=== PATIENT | female | born 1960 | race Two or more races ===

== ENCOUNTER 2017-08-06 06:00 | Day surgery (SDC) | payer OTHER ==
[~2017-08-06 06:00] MED LIST: LOSARTAN POTASS50 MG PO; SYNTHROID50 MCG PO
== END 2017-08-06 12:30 | disposition home or self-care (01) ==
LOC: CIR.AMB 06:00
DX: M75.41 Impingement syndrome of right shoulder (principal); M75.01 Adhesive capsulitis of right shoulder; M75.31 Calcific tendinitis of right shoulder

== ENCOUNTER → 2020-10-10 14:11 | Outpatient (CLI) | payer OTHER | END | disposition home or self-care (01) | LOC: RAD 14:11 | DX: M77.31 Calcaneal spur, right foot (principal); M84.374A Stress fracture, right foot, initial encounter for fracture ==

== ENCOUNTER 2020-11-14 13:55 | Outpatient (CLI) | payer OTHER | END 2020-11-14 14:05 | disposition home or self-care (01) | LOC: RAD 13:55 | DX: M84.374D Stress fracture, right foot, subsequent encounter for fracture with routine healing (principal) ==

== ENCOUNTER 2023-11-16 09:30 | Emergency (ER) | payer OTHER ==
[~2023-11-16] VITALS: Ht 167.6 cm; Wt 56.2 kg
[~2023-11-16 09:30] MED LIST changes: +LIPITOR20 MG PO
[2023-11-16] MEDS ORDERED: DIPHENHYDRAMINE HCL 50 MG/ML VIAL 1ML IV ONE (10:15)
[2023-11-16] MEDS ORDERED: FAMOtidine 10 MG/ML (4ML VIAL) IV ONE (10:15)
[2023-11-16] MEDS ORDERED: 0.9 % SODIUM CHLORIDE 1,000 ML IV ONE (10:15)
[2023-11-16] MEDS ORDERED: KETOROLAC TROMETHAMINE 60 MG VIAL IM ONE ×3 (10:15→10:30)
[2023-11-16] MEDS ORDERED: METHYLPREDNISOLONE SOD SUCC 40 MG VIAL ONE (10:15)
[2023-11-16] MEDS ORDERED: ONDANSETRON HCL 2 MG/ML VIAL IV ONE (10:15)
[2023-11-16] MEDS ORDERED: DIPHENHYDRAMINE HCL 50 MG/ML VIAL 1ML ONE (10:15)
[2023-11-16] MEDS ORDERED: METHYLPREDNISOLONE SOD SUCC 40 MG VIAL IV ONE (10:15)
[2023-11-16] MEDS ORDERED: ONDANSETRON HCL 2 MG/ML VIAL ONE (10:15)
[2023-11-16] MEDS ORDERED: FAMOTIDINE/PF 20 MG/2 ML VIAL ONE (10:16)
[2023-11-16] MEDS ORDERED: MEPERIDINE HCL/PF 50 MG/ML VIAL IV ONE (10:30)
[2023-11-16 10:35] LABS: HEMATOCRIT 39.5 % (36.0-45.00); HEMOGLOBIN 13.8 g/dL (12.0-15.00); MEAN CELL VOLUME 92.2 fL (80.00-100.00); MEAN CORPUSCULAR HEMOGLOBIN 32.3 pg (27.00-32.0); PLATELET COUNT 273 K/uL (150-450); RED BLOOD COUNT 4.28 M/uL (4.00-6.00); RED CELL DISTRIBUTION WIDTH 12.9 % (11.5-14.5)
[2023-11-16 10:40] LABS: PH,URINE 6.5 (5.0-8.0); URINE APPEARANCE Clear; URINE BILIRRUBIN Negative (NEGATIVE); URINE BLOOD Negative; URINE COLOR Yellow; URINE GLUCOSE Negative (NEGATIVE); URINE KETONE Negative (NEGATIVE); URINE LEUKOCYTE Negative; URINE NITRATE Negative; URINE PROTEIN Negative (NEGATIVE); URINE UROBILINOGEN 0.2 E.U./dl
[2023-11-16 10:49] LABS: URINE BACTERIA 0 uL (0.0-1933); URINE EPITHELIAL CELLS 0.6 uL (0.0-38.8); URINE RBC 0.1 uL (0.0-20.8); URINE WBC 0.1 uL (0.0-23.2)
[2023-11-16 11:12] LABS: ALBUMIN 4.1 gm/dL (3.4-5.0); BILIRUBIN TOTAL 0.81 mg/dL (0.3-1.2); CALCIUM 9.4 mg/dL (8.5-10.1); CREATININE SERUM 0.68 mg/dL (0.55-1.02); GFR 87.96; GLOBULINA 3.5 G/DL (2.4-3.5); POTASSIUM 3.55 mEq/L (3.5-5.1); TOTAL PROTEIN 7.6 gm/dL (6.4-8.2)
[2023-11-16] MEDS ORDERED: KETO10TA2 PO (15:01)
== END 2023-11-16 15:28 | disposition home or self-care (01) ==
LOC: ER 09:32
PROVIDERS: General Practice
DX: R10.32 Left lower quadrant pain (principal)

== ENCOUNTER 2023-11-20 13:48 | Outpatient (CLI) | payer OTHER ==
[~2023-11-20 13:48] MED LIST changes: +KETO10TA2 PO
== END 2023-11-20 13:56 | disposition home or self-care (01) ==
LOC: SONOGRAMA 13:48
PROVIDERS: ATTEND Obstetrics & Gynecology
DX: R10.2 Pelvic and perineal pain (principal); R10.10 Upper abdominal pain, unspecified

== ENCOUNTER 2024-09-14 11:25 | Emergency (ER) | payer OTHER ==
[~2024-09-14] VITALS: Ht 167.6 cm; Wt 63.5 kg
[2024-09-14 11:32] VITALS: BP 121/79; O2SAT 100
[2024-09-14] MEDS ORDERED: 0.9 % SODIUM CHLORIDE 1,000 ML IV SCH (12:30)
[2024-09-14 13:38] LABS: BASO % 0.5 % (0.1-1.2); HEMATOCRIT 41.6 % (34.1-44.9); HEMOGLOBIN 14.6 g/dL (11.2-15.7); LYMPH # 1.58 (1.18-3.74); MEAN CORPUSCULAR HEMOGLOBIN 31.3 pg (25.6-32.2); MONO # 0.59 (0.24-0.82); NEUT # 4.38 (1.56-6.13); NEUT % 66.3 % (34.0-71.1); PLATELET COUNT 260 K/uL (163-369); RED BLOOD COUNT 4.66 M/uL (3.93-5.22); RED CELL DISTRIBUTION WIDTH 12.2 % (11.6-14.4)
[2024-09-14 14:51] LABS: COVID-19 AG NEGATIVE (NEGATIVE); INFLUENZA A AG NEGATIVE (NEGATIVE); INFLUENZA B AG NEGATIVE (NEGATIVE)
[2024-09-14 14:54] LABS: ALBUMIN 4.3 gm/dL (3.4-5.0); BILIRUBIN TOTAL 0.5 mg/dL (0.3-1.2); CALCIUM 9.6 mg/dL (8.5-10.1); CREATININE SERUM 0.76 mg/dL (0.55-1.02); GFR 77.11; GLOBULINA 3.1 G/DL (2.4-3.5); POTASSIUM 4.51 mEq/L (3.5-5.1); TOTAL PROTEIN 7.4 gm/dL (6.4-8.2)
== END 2024-09-14 17:09 | disposition home or self-care (01) ==
LOC: ER 11:25
PROVIDERS: Emergency Medicine
DX: R55 Syncope and collapse (principal); R07.89 Other chest pain; Z20.822 Contact with and (suspected) exposure to COVID-19; Z88.8 Allergy status to other drugs, medicaments and biological substances